=== PATIENT | male | born 1970 | race Caucasian/White ===

== ENCOUNTER 2017-01-05 07:06 | Emergency (ER) | payer MEDICAID, OTHER ==
[~2017-01-05] VITALS: Wt 68.0 kg
[2017-01-05] MEDS ORDERED: HALOPERIDOL 5 MG INJ IM STA (07:10)
--- NOTE | 2017-01-05 07:12 | ERD ---
ER Documentation Chief Complaint Date/Time DATE: 01/05/17 TIME: 07:11 Chief Complaint HPI This is a 46-year-old male that presents to the emergency department brought in by FELIBERTO after experiencing bizarre-like behavior. The patient has been standing in the [facility] parking lot. A security control assessor had phoned 911 as the patient became verbally aggressive when asked to leave. FELIBERTO arrived and asked the patient to leave the premises. He became aggressive and required to be placed in handcuffs. The patient denied any drug use or alcohol use. He states he has no past medical history. He denied any suicidal or homicidal thoughts ideations. The patient stated he did not want to provide any further history or answer any further questions as he was concerned that everyone was out to get him. He states he does not have a history of schizophrenia or bipolar. There is no signs of trauma or drug paraphernalia according to FELIBERTO. ROS All systems reviewed and are negative except as per history of present illness. Physical Exam Vitals Vital Signs Date Time Temp Pulse Resp B/P Pulse Ox O2 Delivery O2 Flow Rate FiO2 01/05/17 10:00 98.3 86 20 138/74 98 01/05/17 09:40 98.3 86 20 136/74 98 01/05/17 09:00 98.3 70 20 136/86 98 01/05/17 07:13 98.4 92 20 144/90 100 Physical Exam Constitutional:Well-developed. Well-nourished. HEENT:Normocephalic. Atraumatic.Pupils were equal round reactive to light. Moist mucous membranes.No tonsillar exudates. No nasoseptal hematoma. No hemotympanum. Neck: No nuchal rigidity. No lymphadenopathy. No posterior cervical spine tenderness or step-offs. Respiratory: Not using accessory muscles of respiration.Lungs were clear to auscultation bilaterally. No rhonchi. No rales. No wheezing. Cardiovascular: Regular rate regular rhythm.No murmurs. No rubs were appreciated.S1, S2 normal. Distal pulses are palpable 2+ bilaterally. GI: Abdomen was soft. Nontender. Non Distended. No pulsatile abdominal masses or bruits. No rebound. No guarding. Bowel sounds were present and normal. Muscle skeletal: Full range of motion of both the upper and lower extremities bilaterally.Normal muscle tone.No assymetrical calf tenderness or swelling. Skin: No petechia, no purpura. No lesions on the palms or the soles of the feet. No maculopapular rash. Vitiligo of the face abdomen and upper extremities. NEURO: Patient was alert, awake, orientated x3.No facial droop. Gait observed and normal with no ataxia.Speech had regular rate and rhythm. No focal neurological deficits. The patient made poor eye contact. He appeared very guarded and stated that "the police were out to get him and his family." He denied any suicidal or homicidal thoughts or ideations. He was not experienced any auditory tactile or visual hallucinations. Result Diagram: 01/05/1772701/05/17727 Results 24 hrs Laboratory Tests Test 01/05/17 07:28 01/05/17 10:30 White Blood Count 7.210^3/ul Red Blood Count 4.2910^6/ul Hemoglobin 13.6g/dl Hematocrit 38.8% Mean Corpuscular Volume 90.4fl Mean Corpuscular Hemoglobin 31.7pg Mean Corpuscular Hemoglobin Concent 35.1g/dl Red Cell Distribution Width 12.3% Platelet Count 56751^3/UL Mean Platelet Volume 9.4fl Neutrophils % 68.9% Lymphocytes % 22.3% Monocytes % 6.6% Eosinophils % 1.1% Basophils % 0.8% Nucleated Red Blood Cells % 0.0/100WBC Neutrophils # 4.910^3/ul Lymphocytes # 1.610^3/ul Monocytes # 0.510^3/ul Eosinophils # 0.110^3/ul Basophils # 0.110^3/ul Nucleated Red Blood Cells # 0.010^3/ul Sodium Level 143mmol/L Potassium Level 3.2mmol/L Chloride Level 104mmol/L Carbon Dioxide Level 22mmol/L Anion Gap 20 Blood Urea Nitrogen 13mg/dl Creatinine 0.89mg/dl Glucose Level 213mg/dl Calcium Level 9.3mg/dl Total Bilirubin 0.8mg/dl Direct Bilirubin 0.00mg/dl Indirect Bilirubin 0.8mg/dl Aspartate Amino Transf (AST/SGOT) 51IU/L Alanine Aminotransferase (ALT/SGPT) 51IU/L Alkaline Phosphatase 104IU/L Total Protein 7.4g/dl Albumin 4.2g/dl Globulin 3.20g/dl Albumin/Globulin Ratio 1.31 Salicylates Level < 1.0mg/dl Acetaminophen Level < 10.0ug/ml Ethyl Alcohol Level < 10.0mg/dl Urine Color YELLOW Urine Clarity CLEAR Urine pH 5.0 Urine Specific [place] 1.025 Urine Ketones NEGATIVEmg/dL Urine Nitrite NEGATIVEmg/dL Urine Bilirubin NEGATIVEmg/dL Urine Urobilinogen 2+mg/dL Urine Leukocyte Esterase NEGATIVELeu/ul Urine Microscopic RBC 0/HPF Urine Microscopic WBC 2/HPF Urine Bacteria FEW/HPF Urine Mucus FEW/HPF Urine Hemoglobin NEGATIVEmg/dL Urine Glucose 3+mg/dL Urine Total Protein 1+mg/dl Urine Opiates Screen NEGATIVE Urine Barbiturates NEGATIVE Urine Amphetamines Screen POSITIVE Urine Benzodiazepines Screen NEGATIVE Urine Cocaine Screen NEGATIVE Urine Cannabinoids NEGATIVE Current Medications Medications (Trade) Dose Ordered Sig/Patrick Route PRN Reason Start Time Stop Time Status Last Admin Dose Admin Haloperidol (Haldol) 5 mg ONCE STAT IM 01/05/17 07:10 01/05/17 07:11 DC Lorazepam (Ativan) 2 mg ONCE ONCE IM 01/05/17 07:30 01/05/17 07:31 DC Magnesium Citrate (Citroma) 300 ml ONCE ONCE PO 01/05/17 10:00 01/05/17 10:01 DC Procedures/MDM This patient presented to the emergency department with acute psychosis and my differential diagnosis included but was not limited to ruling out life threatening causes of acute psychosis such as Wernickes encephalopathy, hypoxia , hypoglycemia, hypertensive encephalopathy, intracerebral hemorrhage, meningitis, poisoning. After my evaluation and workup on the patient I was able to exclude medical and reversible causes of the patients psychosis. It was my clinical impression the patients symptoms were an exacerbation of possible amphetamine abuse versus an underlying exacerbation of a psychiatric disorder however the patient denied any history of past medical history. The patient did become severely agitated during medical assessment. Reassurance and verbal de-escalation were successful in calming the patient down however the patient did require restraints as he was attempting to leave and I did not feel that the patient was safe to be discharged at this time without a telemetry psychiatric evaluation as he did appear to be acutely psychotic. Departure Diagnosis: Primary Impression: Amphetamine abuse Additional Impression: Acute psychosis Condition: ARTIE Argueta Jan 05, 2017 07:12
[2017-01-05] MEDS ORDERED: LORAZEPAM 2 MG INJ IM ONE (07:30)
[2017-01-05 08:18] LABS: BASOPHIL # 0.1 10^3/ul (0.0-0.1); BASOPHILS % 0.8 % (0.0-2.0); EOSINOPHILS # 0.1 10^3/ul (0.0-0.5); EOSINOPHILS % 1.1 % (0.0-7.0); HEMATOCRIT 38.8 % (42.0-52.0); HEMOGLOBIN 13.6 g/dl (14.0-18.0); LYMPHOCYTES # 1.6 10^3/ul (0.8-2.9); LYMPHOCYTES % 22.3 % (15.0-51.0); MEAN CORPUSCULAR HEMOGLOBIN 31.7 pg (29.0-33.0); MEAN CORPUSCULAR HGB CONC 35.1 g/dl (32.0-37.0); MEAN CORPUSCULAR VOLUME 90.4 fl (82.0-101.0); MEAN PLATELET VOLUME 9.4 fl (7.4-10.4); MONOCYTE # 0.5 10^3/ul (0.3-0.9); MONOCYTES % 6.6 % (0.0-11.0); NEUTROPHIL # 4.9 10^3/ul (1.6-7.5); NEUTROPHILS % 68.9 % (39.0-77.0); PLATELET COUNT 285 10^3/UL (140-415); RED BLOOD COUNT 4.29 10^6/ul (4.70-6.10); RED CELL DISTRIBUTION WIDTH 12.3 % (11.5-14.5); WHITE BLOOD COUNT 7.2 10^3/ul (4.8-10.8)
[2017-01-05 08:36] LABS: ALANINE AMINOTRANSFERASE 51 IU/L (13-69); ALBUMIN 4.2 g/dl (3.3-4.9); ALBUMIN/GLOBULIN RATIO 1.31; ALKALINE PHOSPHATASE 104 IU/L (42-121); ANION GAP 20 (8-16); ASPARTATE AMINO TRANSFERASE 51 IU/L (15-46); BILIRUBIN,INDIRECT 0.8 mg/dl (0-1.1); BILIRUBIN,TOTAL 0.8 mg/dl (0.2-1.3); BLOOD UREA NITROGEN 13 mg/dl (7-20); CALCIUM 9.3 mg/dl (8.4-10.2); CARBON DIOXIDE 22 mmol/L (21-31); CHLORIDE 104 mmol/L (97-110); CREATININE 0.89 mg/dl (0.61-1.24); GLUCOSE 213 mg/dl (70-220); POTASSIUM 3.2 mmol/L (3.5-5.1); SODIUM 143 mmol/L (135-144); TOTAL PROTEIN 7.4 g/dl (6.1-8.1)
[2017-01-05 08:37] LABS: ACETAMINOPHEN < 10.0 ug/ml (10.0-30.0); ETHANOL < 10.0 mg/dl; SALICYLATE < 1.0 mg/dl (5.0-30.0)
[2017-01-05] MEDS ORDERED: MAGNESIUM CITRATE 300 ML BTL PO ONE (10:00)
[2017-01-05 11:32] LABS: ADD UMIC YES; UR ASCORBIC ACID NEGATIVE (NEGATIVE); UR BACTERIA FEW /HPF (NONE SEEN); UR BILIRUBIN (Dip) NEGATIVE (NEGATIVE); UR BLOOD (Dip) NEGATIVE (NEGATIVE); UR CLARITY CLEAR (CLEAR); UR COLOR YELLOW (YELLOW); UR GLUCOSE (Dip) 3+ mg/dL (NEGATIVE); UR KETONES (Dip) NEGATIVE (NEGATIVE); UR LEUKOCYTE ESTERASE (Dip) NEGATIVE Leu/ul (NEGATIVE); UR MUCUS FEW /HPF (NONE SEEN); UR NITRITE (Dip) NEGATIVE (NEGATIVE); UR RBC 0 /HPF (0-5); UR SPECIFIC GRAVITY (Dip) 1.025 (1.003-1.030); UR TOTAL PROTEIN (Dip) 1+ mg/dl (NEGATIVE); UR UROBILINOGEN (Dip) 2+ mg/dL (NEGATIVE)
[2017-01-05 11:58] LABS: BARBITURATES NEGATIVE (NEGATIVE); BENZODIAZEPINES NEGATIVE (NEGATIVE); CANNABINOIDS NEGATIVE (NEGATIVE); COCAINE NEGATIVE (NEGATIVE); OPIATES NEGATIVE (NEGATIVE)
[2017-01-05] MEDS ORDERED: DIPHTH/TET/ACEL PERTUSS (ADULT) 0.5 ML VIAL IM* ONE (13:30)
--- NOTE | 2017-01-05 14:25 | PSY ---
Date/Time of Note Date/Time of Note DATE: 01/05/17 TIME: 17:21 Psychiatric Subjective Eval Consent Pt consented to telemedicine: Yes Subjective Evaluation Patient location: emergency Chief Complaint: found altered loc with no signs of trauma. lapd at bedside,no etoh noted History of present illness HPI: 46 yo male with ho psychosis, was found in parking lot by PD, blocking traffic, was told to leave, became aggressive with police, was handcuffed. Told the police he was there trying to capture the people who were going to murder his family(al of this was by report). Pt denies any of this.Reported he was simply anxious. Argenis AH, argenis si/hi. Admits to methamphetamien use. Past Psych Hx: denies any Med Hx: denies All; denies MSE: disheveld, bizarre, laughing inappropriately, somewhat disorganized, would say irrelevant, ca statements such as "suck bhavin" for no apparent reason, then smile, denies avh denies si/hi Imp: 46 yo male with psychosis in context of methamphetamine use, gravely disabled -5150 admit -zyprexa 5mg po x1 now -for moderate agitation zyprexa 5mg po prn -for severe agitation haldol 5mg IM, ativan 2mg IM, cogentin 1mg im prn Medical history Problems Medical Problems: (1) Acute psychosis Status: Acute (2) Amphetamine abuse Status: Acute Psychiatric Objective Eval Mental Status Examination: Laboratory Results Laboratory Tests Test 01/05/17 07:28 01/05/17 10:30 White Blood Count 7.210^3/ul Red Blood Count 4.2910^6/ul Hemoglobin 13.6g/dl Hematocrit 38.8% Mean Corpuscular Volume 90.4fl Mean Corpuscular Hemoglobin 31.7pg Mean Corpuscular Hemoglobin Concent 35.1g/dl Red Cell Distribution Width 12.3% Platelet Count 03202^3/UL Mean Platelet Volume 9.4fl Neutrophils % 68.9% Lymphocytes % 22.3% Monocytes % 6.6% Eosinophils % 1.1% Basophils % 0.8% Nucleated Red Blood Cells % 0.0/100WBC Neutrophils # 4.910^3/ul Lymphocytes # 1.610^3/ul Monocytes # 0.510^3/ul Eosinophils # 0.110^3/ul Basophils # 0.110^3/ul Nucleated Red Blood Cells # 0.010^3/ul Sodium Level 143mmol/L Potassium Level 3.2mmol/L Chloride Level 104mmol/L Carbon Dioxide Level 22mmol/L Anion Gap 20 Blood Urea Nitrogen 13mg/dl Creatinine 0.89mg/dl Glucose Level 213mg/dl Calcium Level 9.3mg/dl Total Bilirubin 0.8mg/dl Direct Bilirubin 0.00mg/dl Indirect Bilirubin 0.8mg/dl Aspartate Amino Transf (AST/SGOT) 51IU/L Alanine Aminotransferase (ALT/SGPT) 51IU/L Alkaline Phosphatase 104IU/L Total Protein 7.4g/dl Albumin 4.2g/dl Globulin 3.20g/dl Albumin/Globulin Ratio 1.31 Salicylates Level < 1.0mg/dl Acetaminophen Level < 10.0ug/ml Ethyl Alcohol Level < 10.0mg/dl Urine Color YELLOW Urine Clarity CLEAR Urine pH 5.0 Urine Specific [place] 1.025 Urine Ketones NEGATIVEmg/dL Urine Nitrite NEGATIVEmg/dL Urine Bilirubin NEGATIVEmg/dL Urine Urobilinogen 2+mg/dL Urine Leukocyte Esterase NEGATIVELeu/ul Urine Microscopic RBC 0/HPF Urine Microscopic WBC 2/HPF Urine Bacteria FEW/HPF Urine Mucus FEW/HPF Urine Hemoglobin NEGATIVEmg/dL Urine Glucose 3+mg/dL Urine Total Protein 1+mg/dl Urine Opiates Screen NEGATIVE Urine Barbiturates NEGATIVE Urine Amphetamines Screen POSITIVE Urine Benzodiazepines Screen NEGATIVE Urine Cocaine Screen NEGATIVE Urine Cannabinoids NEGATIVE NOHEMI MOORE Jan 05, 2017 14:25
[2017-01-05 16:15] VITALS: TEMP 98.3
--- NOTE | 2017-01-05 19:26 | QN ---
Documentation Comment Observation Note: Time: 4 hours Family Hx: Negative for diabetes Evaluation: Multiple exams showed improving symptoms and no evidence of clinical decompensation. The patient was seen by our psychiatric tiler who came to the bedside and spoke with the patient. The evaluators does not feel the patient meets criteria for a 5150 hold and the patient will be discharged. The patient has had time to defervesce from the methamphetamines that he used earlier today. CRIS MCDUFFIE MD Jan 05, 2017 19:26
[2017-01-05 19:31] VITALS: BP 124/85; PULSE 85; RESP 18
== END 2017-01-05 19:36 | disposition home or self-care (01) ==
LOC: E/R 07:06
DX: F15.10 Other stimulant abuse, uncomplicated (principal); F23 Brief psychotic disorder; Z23 Encounter for immunization
CPT/HCPCS: 80053; 80306; 80307; 81001; 85025; 90471; 90715; 96372; Z7502; Z7610; J1630; J2060